=== PATIENT | female | born 2000 | race Caucasian/White ===

== ENCOUNTER 2024-04-14 10:00 | Outpatient (REF) | payer OTHER, SELFPAY ==
--- NOTE | ~2024-04-14 | XR_ITS ---
EXAMINATION: XR HAND, RIGHT CLINICAL INFORMATION: Right hand pain. COMPARISON: Right hand radiographs dated 04/05/2024. TECHNIQUE: PA, lateral, and oblique views of the right hand. FINDINGS: Redemonstration of a mildly displaced distal fifth metacarpal fracture in unchanged anatomic alignment with medial displacement of the distal fracture fragment and cortical step off measuring up to 0.3 cm. No significant new bone/callus formation along the periphery of the fracture line. No dislocation. No additional fracture or dislocation. Normal carpal alignment. No joint space narrowing or marginal osteophytes. No osseous erosion. No abnormal soft tissue calcification. XR/XR hand RT min 3V IMPRESSION: Mildly displaced distal fifth metacarpal fracture in unchanged anatomic alignment. No significant new bone/callus formation.
== END 2024-04-14 10:01 | disposition home or self-care (01) ==
LOC: HO.HOSX 10:00
PROVIDERS: Visit Provider Orthopaedic Surgery
DX: S62.336A Displaced fracture of neck of fifth metacarpal bone, right hand, initial encounter for closed fracture (principal); W22.09XA Striking against other stationary object, initial encounter; Y93.9 Activity, unspecified; Y92.9 Unspecified place or not applicable; Y99.9 Unspecified external cause status
CPT/HCPCS: 73130

== ENCOUNTER 2024-04-14 11:00 | Outpatient (AMB) | payer OTHER, SELFPAY ==
--- NOTE | 2024-04-14 11:32 | MHC.OFFVIS ---
Intake Visit Reasons: FC- RT hand displaced fx of 5th metacarpal bone Intake Note: Lena is a 23 year old female who presents to the office today for a RT hand displaced fx of 5th metacarpal. Pt states she punched a door. Pt states she is not in pain but has a very limited ROM in her 5th metacarpal. Allergies No Known Allergies Allergy (Verified 04/14/24 11:33) HPI HPI FC- RT hand displaced fx of 5th metacarpal bone: Details: Lena is a 23 year old right hand dominant woman who presents for a right 5th metacarpal fracture. She reports punching a door on 04/03/24. She was seen in an ED in [place] on 04/05/24 and placed in a splint. She complains primarily of limited motion in her small finger. She reports some pain but says this is tolerable. 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 Review of Systems Const All systems reviewed & are unremarkable except as noted in HPI and below Physical Exam Const General: cooperative, healthy appearing and no acute distress Orientation/consciousness: patient oriented x3 HEENT Head: Yes normocephalic and Yes atraumatic Eyes EOM: EOMs intact bilaterally Resp Effort & Inspection: normal respiratory effort and able to speak in complete sentences Cardio Jugular venous distension: no JVD Skin General skin exam: turgor normal Rashes: no rashes Neuro General: patient oriented x3 Extrem Other: Evaluation of Right Upper Extremity: The patient is alert, oriented, and in no acute distress Neuro: Median, Ulnar, Radial nerves motor and sensory intact and sensation is normal to the tips of all digits Vascular: Cap refill brisk ROM: She can bring her index, middle, and ring fingers closed to a fist, and almost bring her small finger closed to afist No rotational mal-alignment She can flex her small finger MCP joint to ~70 degrees No prominent head of the 5th metacarpal at the palm Skin: No lacerations or abrasions. General: Most TTP over the fracture site of the distal aspect of the 5th metacarpal Tender over the Hamate, dorsally Ecchymosis along ulnar aspect of hand & wrist Radiographs: 3 views of the right hand were taken and viewed by me today in clinic. They show a 5th metacarpal head/neck fracture with ~25 degrees apex dorsal angulation and mild radial translation Psych Appearance: grossly normal Affect: normal affect Attitude: cooperative Office Procedures Fracture Care Details: Fracture care 64214 Fracture Billing Code: Fracture Billing Code Assessment & Plan Assessment & Plan (1) Closed displaced fracture of neck of right fifth metacarpal bone: Code(s): S62.336A - Displaced fracture of neck of fifth metacarpal bone, right hand, initial encounter for closed fracture Category: Medical Plan Assessment & Plan: 1. Right 5th metacarpal head/neck fracture With ~25 degrees apex dorsal angulation and mild radial translation From a punching injury, DOI: 04/03/24 I educated her about this condition I discussed operative and non-operative treatment options I recommend we manage this non-operatively She was fitted for a velcro wrist splint, to be worn like a cast except for showering for the next 3 weeks. Her ring & small fingers were also Dontrell-taped She will work on ROM exercises at home, while in her splint I discussed activity modifications, she is to lift nothing heavier than a cellphone for the next two weeks I discussed the effects of smoking on bone healing and recommend she stop smoking while healing. She expressed understanding She works at a dispensary, and was given a note to return to work on light duty, with a 2lb weight limit for the next 3 weeks She will follow up in 3 weeks, with X-rays 3V ramez HYATT Scribed for Smitha Ro MD by Art Teran, medical record transcriber, on 04/14/24 at 11:50 AM, EST. Orders: Orders XR hand RT min 3V Today M79.641 - Pain in right hand Coding Level of Care Code New Pt Level 3 (73788) Diagnoses Closed displaced fracture of neck of right fifth metacarpal bone S62.336A CPT Codes Fracture Care - Fracture Billing Code: Fracture Billing Code ([id number])
== END 2024-04-14 13:14 | disposition home or self-care (01) ==
PROVIDERS: Visit Provider Orthopaedic Surgery
DX: S62.336A Displaced fracture of neck of fifth metacarpal bone, right hand, initial encounter for closed fracture (principal)
CPT/HCPCS: 99203

== ENCOUNTER 2024-05-11 10:22 | Outpatient (REF) | payer OTHER, SELFPAY ==
--- NOTE | ~2024-05-11 | XR_ITS ---
EXAMINATION: XR HAND, RIGHT CLINICAL INFORMATION: Right hand pain. COMPARISON: 04/14/2024 TECHNIQUE: PA, lateral, and oblique views of the right hand. FINDINGS: Alignment of the transverse fracture through the fifth metacarpal neck is unchanged with slight apex dorsal angulation. Subtle callus formation is increased. Softening of the fracture margins is also noted. Soft tissues are swollen. No new fractures. Joint spaces are well-preserved. XR/XR hand RT min 3V IMPRESSION: Unchanged alignment of the healing fifth metacarpal neck fracture with progressive healing.
== END 2024-05-11 10:23 | disposition home or self-care (01) ==
LOC: HO.HOSX 10:22
PROVIDERS: Visit Provider Orthopaedic Surgery
DX: M79.641 Pain in right hand (principal)
CPT/HCPCS: 73130

== ENCOUNTER 2024-05-11 10:36 | Outpatient (AMB) | payer OTHER, SELFPAY ==
--- NOTE | 2024-05-11 10:41 | MHC.OFFVIS ---
Vital Signs 05/11/24 10:53 Height 5 ft 3 in Weight 146 lb BMI 25.9 Intake Visit Reasons: OV- RT hand displaced fx of 5th metacarpal bone Intake Note: Lena is a 23 year old right hand dominant female who presents to the office today for a follow up and ROM check on a right hand displaced fx of 5th metacarpal. Patient reports on and off pain at the base of the right thumb. Patient denies numbness, tingling, or locking on fingers. Patient shares her right middle finger knuckle feels a little bruised. She is not taking anything for pain at this time. Allergies No Known Allergies Allergy (Verified 05/11/24 10:41) HPI HPI OV- RT hand displaced fx of 5th metacarpal bone: Details: Lena is a 23 year old right hand dominant woman who presents for a right 5th metacarpal fracture. She reports punching a door on 04/03/24. She says she is doing better overall, and has been wearing her splint as instructed. 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 [facility] Social History (Updated 05/11/24 @ 10:55 by REGGIE Portillo) Current occupational status: employed Current occupation: rt handed, retail Review of Systems Const All systems reviewed & are unremarkable except as noted in HPI and below Physical Exam Vital Signs: BMI result Body Mass Index 25.9 Const General: no acute distress and alert Orientation/consciousness: patient oriented x3 Neuro General: patient oriented x3 Extrem Other: Evaluation of Right Upper Extremity: The patient is alert, oriented, and in no acute distress sensation is normal to the tips of all digits Cap refill brisk ROM: She can make a fist and actively extend all her digits Satisfactory clinical alignment. No rotational mal-alignment Fracture site non-tender. No appreciable swelling Good wrist range of motion. Radiographs: 3 views of the right hand were taken and viewed by me today in clinic. They show a 5th metacarpal head/neck fracture with ~25 degrees apex dorsal angulation and mild radial translation, with no change in alignment and some evidence of interval bony healing. The fracture is still visible however. Psych Appearance: grossly normal Affect: normal affect Attitude: cooperative Assessment & Plan Assessment & Plan (1) Closed displaced fracture of neck of right fifth metacarpal bone: Code(s): S62.336A - Displaced fracture of neck of fifth metacarpal bone, right hand, initial encounter for closed fracture Category: Medical Plan Assessment & Plan: 1. Right 5th metacarpal head/neck fracture With ~25 degrees apex dorsal angulation and mild radial translation From a punching injury, DOI: 04/03/24 I educated her about this condition Her fracture appears to be healing well. She will discontinue her wrist splint for most of the time. She will wear her velcro wrist splint when in situations where she is concerned somebody may want to grab her hand, like a concert or perhaps a bar, for the next few weeks. She works at a [employer] & will Karen-tape her fingers prior to her work for the next 3 weeks. She does not need to wear the splint or karen tape when she is at home and at rest. I discussed activity modifications, and that she needs to allow for the fracture to continue to heal. She is happy with the current plan She can follow up prn Scribed for Smitha Ro MD by Art Teran, emergency medical services coordinator, on 05/11/24 at 11:15 AM, EST. Orders: Orders XR hand RT min 3V Today M79.641 - Pain in right hand Coding Level of Care Code Global (71651) Diagnoses Closed displaced fracture of neck of right fifth metacarpal bone S62.336A
[2024-05-11 10:53] VITALS: BMI 25.9
== END 2024-05-11 11:21 | disposition home or self-care (01) ==
PROVIDERS: Visit Provider Orthopaedic Surgery
DX: S62.336A Displaced fracture of neck of fifth metacarpal bone, right hand, initial encounter for closed fracture (principal)
CPT/HCPCS: 99213